=== PATIENT | male | born 2000 | race Caucasian/White ===

== ENCOUNTER 2020-05-30 00:33 | Observation (INO) | payer OTHER, SELFPAY ==
[2020-05-30] VITALS (13 sets, daily range): BP systolic 107–143; BP diastolic 39–68; PULSE 59–101; RESP 14–22; TEMP 36.4–37.7; O2SAT 95–99
--- NOTE | 2020-05-30 00:35 | W.ED.GENAD ---
Discharge Plan Disposition Patient Disposition: [facility] INPATIENT Condition: Good Discharge Details Chief Complaint: Orthopedic Clinical Impression: Closed fracture dislocation of left ankle Primary Care Provider: Stefani,Local ED Provider: Patrick Sheets [place] Meds and New Rx's Prescriptions: No Action mupirocin 22 GM ointment 1 adolfo Topical TID Qty: 22 RF: 1 cetirizine 10 mg tablet 10 mg PO DAILY PRN (Reason: allergy symptoms) Qty: 30 RF: 2 triamcinolone acetonide 0.1 % cream 1 applic TP BID Qty: 80 RF: 1 citalopram 10 mg tablet 10 mg PO DAILY Qty: 90 RF: 3 Medical Decision Making Patient reports having about 10 beers tonight. He is awake and alert and in obvious discomfort. IV established and aliquots of fentanyl 50 mcg were given. X-ray was obtained to show fracture of the distal fibula with dislocation of the ankle at the tibia. After 250 mcg of fentanyl, patient was comfortable enough. Fracture dislocation was reduced with traction countertraction without difficulty. Patient tolerated well. Leg is put in a posterior splint. Postreduction films look good. Patient remains neurovascularly intact. Foot pinked up immediately and pulse became strong. Case discussed with orthopedics, Dr. Benz. Patient to be admitted to his service with plan for or in the morning. Patient and mother updated on plan. Patient resting comfortably with foot elevated and ice in place. HPI General Mode of arrival: wheelchair. Date/Time Provider Initiated Documentation: 05/30/20 00:35. Limitations to Documentation: no limitations. Information obtained by: patient and RN notes reviewed. HPI Narrative: Patient presents to ED with left ankle injury. Patient was out with friends. They have been drinking. They were playing football when he jumped over a fence to catch the ball. He landed awkwardly and immediately had pain and heard a snap. Denies any other injury. Did not have loss of consciousness. Has no chest pain, back pain, neck pain, shortness of breath. He has obvious deformity of the left ankle. Related Data Home Medications Medication Instructions Recorded Confirmed mupirocin 1 adolfo TOPICAL TID #22 gm 05/17/18 12/06/18 cetirizine 10 mg tablet 10 mg PO DAILY PRN #30 tab 07/23/18 12/06/18 triamcinolone acetonide 0.1 % 1 applic TP BID #80 gm 07/23/18 12/06/18 topical cream citalopram 10 mg tablet 10 mg PO DAILY #90 tab 07/09/19 Previous Rx's Medication Instructions Recorded mupirocin 1 adolfo TOPICAL TID #22 gm 05/17/18 cetirizine 10 mg tablet 10 mg PO DAILY PRN #30 tab 07/23/18 triamcinolone acetonide 0.1 % 1 applic TP BID #80 gm 07/23/18 topical cream citalopram 10 mg tablet 10 mg PO DAILY #90 tab 07/09/19 Allergies Allergy/AdvReac Type Severity Reaction Status Date / Time cat dander Allergy Unverified 12/06/18 11:47 dog dander Allergy Unverified 12/06/18 11:47 Review of Systems Narrative: As documented in HPI otherwise negative as below. 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 Const: WDWN male in NAD. HEENT: NC/AT. Normal facial exam. Neck: Supple. Trachea midline. no midline tenderness. Lungs: Normal respiratory effort. No chest wall tenderness. Cor: Good distalal pulses. Neuro: A+O x 3. Normal speech, mentation, gait. Cranial nerves II - XII grossly intact. No gross motor or sensory deficit. Ext: Left lower extremity with obvious fracture dislocation of the left ankle with foot turning out laterally. This is closed. Foot is dusky but DP pulse is palpable. Sensation and strength distally. Skin: Warm and dry without wounds. Procedures Orthopedic Joint Reduction Joint #1: Time Out Performed: Yes Side: left Joint Reduction Location: ankle Analgesia: other (fentanyl only) Technique used: traction/counter-traction Post-reduction neuro exam: intact Post-reduction vascular: intact Post Reduction X-Ray Obtained: Yes Post Reduction X-Ray Results: reduced Splint Applied: Yes Patient Tolerated Procedure: well and no complications Orthopedic Splinting/Casting Injury #1: Side: left Lower Extremity Injury Location: ankle Lower Extremity Immobilizer: posterior splint
--- NOTE | 2020-05-30 00:54 | DI.RAD_ITS ---
EXAM: XR ANKLE LT 2V CLINICAL HISTORY: trauma TECHNIQUE: 2D digital imaging was performed. COMPARISON: No exams were available for comparison FINDINGS: BONES: There is a comminuted fracture through the distal fibular diaphysis. The distal fracture is a ngulated laterally. There is a fracture fragment seen in the ankle joint. No bony destructive lesio n is seen. JOINTS:There is a complete dislocation of the ankle with the talus displaced laterally with overlap o f the tibia and talus noted. SOFT TISSUE: Soft tissue swelling about the ankle is noted. IMPRESSION: Fracture dislocation of the ankle joint. There is a comminuted and angulated distal fibular fracture and lateral dislocation of the ankle joint. DATA REPOSITORY: RADIATION DOSE DELIVERED:
[2020-05-30] MEDS: fentaNYL 100 MCG/2 ML VIAL 50 MCG IVP ×6 (00:55→01:10)
[2020-05-30] MEDS: Lactated Ringers 1,000 ML 1000 ML IV (01:03)
--- NOTE | 2020-05-30 01:22 | DI.RAD_ITS ---
EXAM: XR ANKLE LT COMPLETE CLINICAL HISTORY: post reduction TECHNIQUE: 2D digital imaging was performed. COMPARISON: No exams were available for comparison FINDINGS: BONES: Since the prior examination there has been significant improvement in the alignment of the dis chance fibular fracture. There is a persistent 5 mm gap between the dominant fracture fragments. No beatriz ny destructive lesion is seen. There is a linear density seen on the lateral view inferior to the faby caneus which may represent a displaced fracture fragment or external artifact. It may be related to the lateral casting material. JOINTS:The ankle alignment has been relocated. There is persistent moderate widening of the medial a nkle mortise. SOFT TISSUE: Normal. IMPRESSION: 1. Significant improvement in the alignment of the left ankle fracture dislocation as described above . 2. Linear density inferior to the calcaneus appreciated on the lateral view. Please see the above di scussion for details. DATA REPOSITORY: RADIATION DOSE DELIVERED:
--- NOTE | 2020-05-30 01:24 | DI.VRAD_ITS ---
PROCEDURE INFORMATION: Exam: XR Left Ankle Exam date and time: 05/30/2020 12:55 AM Age: 19 years old Clinical indication: Injury or trauma; Initial encounter; Dislocation; Injury details: PT was jumping over a fence, severe left ankle deformity. Foot appears externally rotated approx. 90* while the lower leg remains in the ap position TECHNIQUE: Imaging protocol: XR Left ankle. Views: 1 or 2 views. COMPARISON: No relevant prior studies available. FINDINGS: Bones/joints: There is a fracture-dislocation involving the ankle. There is a spiral fracture of the distal fibular diaphysis. The fracture fragments are splayed at the ankle joint and there is a 1.2 cm fracture fragment in the ankle joint. There is complete dislocation of the tibia with mild overlap with the talus. Soft tissues: No large soft tissue hematoma seen. IMPRESSION: Significant fracture-dislocation of the ankle joint with dislocation of the tibia and spiral fracture of the distal fibula. Dictated and Authenticated by: Evonne Doty MD. Ordering:EARLENE Nguyen MD
--- NOTE | 2020-05-30 01:24 | NUR.NOTE ---
Arrives with left ankle deformity s/p jumping over fence. +PP, foot dusky, cool. Med per JAN, ankle reduced by MD Sheets, color improved, foot warmed. Splint applied by MD Sheets, post reduction films done.
--- NOTE | 2020-05-30 01:34 | NUR.NOTE ---
[facility] [phone] [place] [phone]
--- NOTE | 2020-05-30 01:36 | NUR.NOTE ---
Pt attempted to call mother, no answer. Pt friends left with his wallet and phone.
[2020-05-30] MEDS: Ketorolac 30 MG/ML VIAL IVP (01:42)
--- NOTE | 2020-05-30 01:57 | NUR.NOTE ---
Pt mother at bedside.aware of plan.
--- NOTE | 2020-05-30 02:11 | DI.VRAD_ITS ---
PROCEDURE INFORMATION: Exam: XR Left Ankle Exam date and time: 05/30/2020 1:22 AM Age: 19 years old Clinical indication: Abnormal findings; Abnormal imaging study; Patient HX: Post reduction, left ankle fracture/dislocation TECHNIQUE: Imaging protocol: XR Left ankle. Views: 3 or more views. COMPARISON: CR XR ANKLE LT 2V 05/30/2020 12:49 AM FINDINGS: Bones/joints: The patient is status post reduction of left ankle fracture-dislocation. There is significant improved alignment of the spiral fracture of the distal fibula with approximately 5 mm residual gap between the dominant fracture fragments. There is a linear density in the region of the inferior calcaneal soft tissues, which may represent a fracture fragment or external object. The tibia has been relocated within the ankle joint with mild residual widening at the medial ankle mortise. Soft tissues: No large soft tissue hematoma. IMPRESSION: 1. Significant interval improvement in alignment of left ankle fracture-dislocation with details as described. 2. Linear density inferior to the calcaneus may represent a fracture fragment versus an external object. Correlate with physical examination findings. Dictated and Authenticated by: Evonne Doty MD. Ordering:EARLENE Nguyen MD
[2020-05-30] MEDS: Lactated Ringers 1,000 ML 80 ML IV ×2 (03:15→10:01)
--- NOTE | 2020-05-30 07:07 | W.PM.HP.N ---
Date of service: 05/30/20 Time of Service: 06:47 Assessment and Plan Assessment and plan (1) Closed fracture dislocation of left ankle: Status: Acute Assessment and plan: Tyson is a 19-year-old who had a slip and a fall and a left ankle fracture dislocation. This is a primary Raya C fibula fracture with clear syndesmotic injury. I had a long discussion with Tyson about treatment options. I would recommend urgent surgical stabilization given the persistent lateral subluxation of the talus. I am concerned about his skin. He does have some wrinkles but no other swellings continue to develop. We are under 24 hours and therefore should be safe to proceed. Either way, this does need to be made better. My plan will be for a lateral approach to restore fibular anatomy, reduce the talus, and then secure the syndesmosis with either a tight rope or screw. I would only open the medial side of his still unstable or was irreducible. I discussed treatment risk, to include bleeding, infection, pain, stiffness, malunion, nonunion, hardware prominence, hardware failure, damage to nerves and vessels (especially the superficial peroneal nerve), arthritis, need for repeat procedures including screw removal, blood clot. Despite these risks, he elects to proceed. Qualifiers: Encounter type: initial encounter Qualified Code(s): S82.892A - Other fracture of left lower leg, initial encounter for closed fracture History of Present Illness History of Present Illness Chief Complaint: Left Ankle Fracture Dislocation Consults Consult date: 05/30/20 Requesting physician: Patrick Sheets Narrative: Tyson is a 19-year-old who presented last night to the emergency department after a fall. At the time, he was having some drinks with some friends and was playing catch with a football. He hurt all day fence and slipped on the wet grass underneath suffering an external rotation event. Immediate deformity and pain. In the emergency department he was diagnosed with a left ankle fracture dislocation. He underwent a closed reduction by Dr. Sheets. This significantly improved his pain. He still has some pain about the left ankle but has been controlled overnight. He denies any previous ankle issues, no trauma nor surgery. He denies numbness or tingling. He denies pain in the hip or knee of this left leg. He has no medical issues. He has not traveled out of the region and has had no contact with people who have traveled on the region or have had sick contacts. He denies fevers, chills, cough, shortness of breath. Review of Systems All systems reviewed & are unremarkable except as noted in HPI and below PFSH Medical History Acne Depression (Inactive 11/29/17) Pectus carinatum (Inactive 06/07/13) Psoriasis Surgical History Circumcision teeth 10/02/18 Family History Mother Asthma Father Hyperlipidemia Other Mental disorder Social History Smoking/Tobacco Use Status: Never Alcohol Intake: current Alcohol Intake frequency: a few times a month Alcohol type: beer Substance use type: does not use Housing: other Details: dorm current occupation: [employer] Sexually active: No Do you think of yourself as: straight/heterosexual Do you feel safe at home: Yes Do you feel safe in your relationship?: Yes Additional Social history: 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, 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 Meds Home Medications and Allergies Home Medications Medication Instructions Recorded Confirmed Type cetirizine 10 mg tablet 10 mg PO DAILY PRN #30 tab 07/23/18 05/30/20 Rx Allergies Allergy/AdvReac Type Severity Reaction Status Date / Time cat dander Allergy Unverified 12/06/18 11:47 dog dander Allergy Unverified 12/06/18 11:47 Exam Const General: cooperative, healthy appearing, comfortable and no acute distress Nutritional Appearance: average body habitus Orientation: alert, awake and oriented x3 HENMT Head: normal to inspection, normocephalic and atraumatic Ears: hearing grossly normal bilaterally Eyes General: appearance normal, both eyes and all related structures Neck Neck: normal visual inspection and full ROM Resp Effort & Inspection: normal respiratory effort and able to speak in complete sentences Cardio Rate: regular rate Extrem Other: The left leg is in a splint. Some visible material was removed for better inspection. There is notable swelling yet the skin has a slight wrinkle to it. No break in the skin. Overall alignment appears grossly normal. He has intact EHL and FHL function. Sensation intact light touch over the superficial and deep peroneal nerve as well as the tibial nerve. Palpable DP pulse. No pain over the proximal fibula. No pain to palpation of the left knee. No pain with gentle internal or external rotation of the hip. Psych Mood: congruent mood Affect: normal affect Attitude: cooperative Results Imaging Imaging Studies: X-ray of the left ankle showed a complete ankle fracture dislocation with lateral displacement of the talus and comminuted fracture of the left fibula. No apparent medial fracture. Postreduction x-rays of the left ankle showed an improved reduction with some persistent lateral displacement. Long oblique fracture of the fibula. There is persistent medial clear space widening and slight talar tilt. No apparent medial tibia fracture. Last Vital Signs Temp 37.4 C 05/30/20 03:15 Pulse 80 05/30/20 03:15 Resp 16 05/30/20 03:15 BP 129/66 05/30/20 03:15 Pulse Ox 98 05/30/20 03:15 COVID-19 Screening Have you,or household,traveled outside [place] in last 14 days?: No Had IN PERSON contact w/suspected or confirmed C-19 person: No
--- NOTE | 2020-05-30 07:15 | DI.RAD_ITS ---
EXAM: XR ANKLE LT 2V CLINICAL HISTORY: fracture TECHNIQUE: 2D and realtime digital imaging was performed. CONTRAST MATERIAL: Refer to procedure report. COMPARISON: CR,XR XR ANKLE LT COMPLETE from 05/30/2020 FINDINGS: Fluoroscopy was provided for Dr. Benz during the performance of a reduction and internal fixatio n of the distal fibular fracture and suture button fixation of the syndesmosis. There has been impro alanis anatomic alignment of the fibula and ankle mortise. Please refer to the procedure report for com plete details. Fluoro time: 64.5 seconds IMPRESSION:
[2020-05-30] MEDS: ceFAZolin 2 GM/50 ML BAG IVPB (08:02)
--- NOTE | 2020-05-30 09:46 | DI.VRAD_ITS ---
PROCEDURE INFORMATION: Exam: XR Left Ankle Exam date and time: 05/30/2020 9:37 AM Age: 19 years old Clinical indication: Device placement; Other: Fibula plate placement TECHNIQUE: Imaging protocol: XR Left ankle. Views: 3 or more views. COMPARISON: CR XR ANKLE LT COMPLETE 05/30/2020 1:16 AM FINDINGS: 2 static fluoroscopic images demonstrate a new metallic plate along the lateral aspect of the distal fibula, including the lateral malleolus, secured with multiple screws, with 1 additional free screw. A transsyndesmotic band is also present, secured with a clip over the medial aspect of the tibia. Previously noted fibular fracture is in improved anatomic alignment. Positioning of the mortise is also improved. IMPRESSION: Intraoperative fluoroscopy for ORIF. Dictated and Authenticated by: Mook Roblero MD. Ordering:TODD Taylor MD
--- NOTE | 2020-05-30 09:55 | ROE_ITS ---
Date of service: 05/30/20 Time of Service: 09:55 Operative Note Operative Note DATE OF PROCEDURE: 05/30/20 PRE-OP DIAGNOSIS: Left Ankle Fracture Dislocation POST-OP DIAGNOSIS: same PROCEDURE: Open Reduction and Internal Fixation of Left Ankle Fracture- Lateral Malleolus and Syndesmosis SURGEON: Brandon Benz MAIL HANDLER EQUIPMENT OPERATOR: Alexa Villasenor ANESTHESIA: spinal ESTIMATED BLOOD LOSS: 50 PATHOLOGY: none sent TOURNIQUET TIME: 0 COMPLICATIONS: None Patient was transported to: PACU Patient's condition: stable Implants: Synthes 1/3 Tubular LCP plate, Arthrex Syndesmosis Tightrope Indications: Tyson is a 19 year old male who presented to the Emergency Department after a fall. X-rays confirmed the diagnosis of a left ankle fracture-dislocation. This was reduced but with some residual lateral talar displacement. I reviewed the possible treatment options and given the fracture, I recommended operative fixation. I discussed the technical details of the surgery. I reviewed the risks such as bleeding, infection, pain, stiffness, malunion, nonunion, hardware prominence, hardware failure, damage to nerves and vessels, blood clot. Despite these risks, he agreed to proceed. Findings: There was a comminuted, oblique fracture of the distal fibula repaired with a lag screw and a neutralization plate. Syndesmosis was secured with a tightrope device. Procedure Description: Tyson was greeted in the preoperative area. Consent was previously reviewed and signed. Once in the operating room, spinal anesthesia was administered. The patient was transferred to the fracture table in the supine position. He was positioned in the supine position with the operative side placed onto a bone foam ramp. All bony prominences were well padded. Arms were placed out to the side, padded, and secured. Prophylactic antibiotics, Cefazolin 2 grams, was given for prophylactic antibiotics. A timeout was performed for safe surgery. The left leg was prepped with Chloraprep. The leg was draped with a stockinette and extremity drape. Using fluoroscopy for guidance of positioning of the incision, a lateral approach to the fibula was planned. A longitudinal incision was made over the posterior aspect of the fibula starting from the tip of the distal fibula to an area proximal to the main fracture line. This was taken down sharply through the skin and some the subcutaneous tissue. A Metzenbaum scissor was used to dissect on top of the fascia to make sure there was no identification of the superficial peroneal nerve. It was then identified on top of the fascia and therefore the fascia was incised overlying the posterior aspect of the fibula. This was taken down to bone for the length of the surgery site. The fracture was identified. Using both electrocautery as well as a cates elevator, I elevated some the periosteum from around the fracture and in the area of where the plate would be placed. The fracture site was open and debrided of any early fracture hematoma. There is no to be some slight comminution over the anterior, distal aspect of the fibula at the level of the syndesmotic attachment of the anterior inferior tibiofibular ligament. This was a really small piece which was difficult to mobilize separately so it was left for later. The main fracture line was a long oblique fracture. There was a small extension proximally which was very thin. This was deemed not to be integral to the main repair and therefore focus was made on an anatomic reduction of the primary oblique fracture line. Manipulated the fracture and then using clamps I was able to anatomically reapproximate the distal fibula. This main oblique fracture line was noted to be anatomically reduced. It was held with 2 clamps. I then placed a lag screw from anterior to posterior. This 3.5 millimeter screw was placed using lag technique, over drilling the near cortex. This had excellent purchase and compressed the fracture site. After placement of this lag screw remove the other clamps there is no to be excellent stability at the fracture site. Therefore I proceeded with a neutralization plate. An 8 hole one third tubular plate was chosen based on his length. It was held onto the fibula noted to be of appropriate length to get 3 screws into the proximal piece and 3 screws in the distal piece and avoid the majority of the oblique fracture line and allow hole for syndesmotic fixation. This was then contoured on the back table to shape around the distal fibula. I then placed it onto the fibula staying directly lateral and not causing irritation to the asia mana muscle and tendon. It was held in a poor position, confirmed to be in a good spot on x-ray as well as direct visualization. It was then held there with a clamp and K wire. A single nonlocking cortical screw was placed distally which brought down the end of the plate to bone. This also helped contour the plate to the shape of the fibula. Similarly, a 3.5 mm nonlocking cortical screw was placed proximally which did the same to bring the plate down to bone. This was once again checked and made sure to be in appropriate position. I then placed 2 additional nonlocking screws proximally. These had excellent purchase in the bone. Distally, I placed 2 locking screws to the plate. Once these were positioned and noted to be unicortical not violating the tibiofibular or tibiotalar joint, I then remove the nonlocking screw and replaced it with a locking screw to minimize screw head prominence as well as create a fixed angle construct into the poor bone of the distal fibula. Once was completed the fracture line was stable. X-ray was used to confirm that the reduction appeared anatomic. The syndesmosis was still unstable as expected. Therefore, I placed a syndesmotic tight rope fixation. Using the Arthrex system, a K wire was placed from the plate across the tibia angle at about 30 degrees from posterior to anterior and staying parallel to the joint. With this placed this was drilled. K wire drill removed. The syndesmotic tight rope and button were then inserted through the tibia and once on the other side released in position against the tibial cortex. This was manipulated few times to make sure was sitting squarely against bone. It was also tested to make sure that it was secure. The button was then slid down onto the plate and using the handles, the tight rope was tightened. Excess suture was then cut. Final x-rays were obtained which showed anatomic reduction of the fibula. External rotation stress test showed no significant talar tilt or medial space widening so therefore no medial approach and deltoid repair was performed. There still was some posterior displacement of the superior wafer of the fibula. I placed a single 2-0 FiberWire stitch and a cerclage fashion around this to help hold it in place. However, the proximal aspect was attached to some muscle fascia and was difficult and trying to keep reduced onto the fibula. Therefore, I did not further dissect and expose this area and left as is knowing that it would be held in position in a rough approximation given its attachments to the surrounding muscle. The wound was thoroughly irrigated. The deep tissues and skin and subcutaneous tissue were injected with 0.25% ropivacaine with epinephrine. No tourniquet was used during the case. I was able to get a nice fascial closure using a 0 Vicryl completely closing off the plate with soft tissue. The deep tissues were then reapproximated with a 2-0 Vicryl. The skin was closed with both interrupted and horizontal mattress nylon sutures. He was swollen but we were able to close the wound with minimal tension. The wound was covered with Xeroform, 4 x 4's, ABD and web roll. He was placed into a short leg splint. At the end of the case, all counts were correct. Tyson tolerated the procedure well without known complication and was taken to the PACU for recovery. Physical therapy will start post-operatively, nonweightbearing with a splint. Anticoagulation will start within 12-24 hours, aspirin 81 mg twice daily. Post-operative antibiotics for prophylaxis will be administered.
--- NOTE | 2020-05-30 09:57 | DSE_ITS ---
Date of service: 05/30/20 DS: Diagnosis Discharge Diagnosis (1) Closed fracture dislocation of left ankle: Status: Acute Discharge Plan Disposition Patient Disposition: HOME Condition: Good Discharge Details Chief Complaint: Orthopedic Clinical Impression: Closed fracture dislocation of left ankle Reason For Visit: LEFT ANKLE FRACTURE DISLOCATION Admit Date/Time: 05/30/20 02:12 Admit Provider: Brandon Benz Attending Provider: Brandon Benz [facility] Pat[facility] Hospital Course: Patient was admitted to the medical/surgical floor from the ED and then went to surgery that morning. He returned to the floor following the procedure. The surgery was tolerated well without any notable medical, surgical, or anesthetic complications. Mobilization began postoperatively. He was voiding spontaneously. Vitals were stable. Physical therapy worked with the patient and was cleared for discharge home. No acute medical issues. Pain was controlled on oral regimen. Home Meds and New Rx's Prescriptions: New aspirin 81 mg tablet,delayed release (DR/EC) 81 mg PO BID Qty: 60 RF: 0 acetaminophen 500 mg tablet 1,000 mg PO Q8H PRN (Reason: pain) Qty: 90 RF: 3 docusate sodium [Colace] 100 mg capsule 100 mg PO BID PRNQty: 10 RF: 0 ibuprofen 600 mg tablet 600 mg PO TID PRNQty: 90 RF: 3 oxycodone 5 mg tablet 5 mg PO Q6H PRN PRNQty: 12 RF: 0 Continued cetirizine 10 mg tablet 10 mg PO DAILY PRN (Reason: allergy symptoms) Qty: 30 RF: 2 Discharge Instructions Additional Instructions: Activity: You are NON WEIGHT BEARING. You should keep the leg elevated as much as possible. You may wiggle your toes and move your hip and knee. Dressings: You should keep your splint clean and dry. Do NOT get wet or dirty. If you have issues with your splint, please call the office at [phone] Benz on his cell, . You may apply ice to the splint but just make sure it is double bagged and doesn't get the splint wet. Medications: - You should take Tylenol and Ibuprofen around the clock for baseline pain. - You have been prescribed a stronger narcotic for breakthrough pain, Oxycodone. Take only as needed and as prescribed. Please call Dr. Benz if you are having serious pain. - You should take a Baby Aspirin (81mg) twice a day for blood clot prevention. Follow-up: 2 weeks Referrals: Brandon Benz MD [ [facility] STAFF PHYSICIAN] - 06/12/20 Activity:: Non weight bearing - keep elevated Equipment/Supplies:: Crutches Diet:: As Tolerated Discharge Orders Discharge Orders: Discharge Order (Routine); Ordered 05/30/20 Ordered By: Brandon Benz DS: Summary Status at Discharge Functional status at discharge: uses cane/walker Overall status at discharge: patient is progressing back to baseline Mental Status: mental status grossly normal Speech and Movement: speech and movement normal Mood: congruent mood Affect: normal affect Exam Psych Mental Status: mental status grossly normal Speech and Movement: speech and movement normal Mood: congruent mood Affect: normal affect DS: Data Vitals/I&O Vitals and I&O: Vital Signs Temperature 37.7 C H 05/30/20 07:35 Temperature Source Temporal Artery Scan 05/30/20 07:35 Pulse 83 05/30/20 07:35 Pulse Rhythm Regular 05/30/20 03:15 Respiratory Rate 18 05/30/20 07:35 Respiratory Effort Non-Labored 05/30/20 03:15 Respiratory Depth Normal 05/30/20 03:15 Respiratory Pattern Normal 05/30/20 03:15 Blood Pressure 143/65 H 05/30/20 07:35 Blood Pressure Position Sitting 05/30/20 00:34 Pulse Oximetry 99 05/30/20 07:35 Oxygen Delivery Method Room Air 05/30/20 07:35 Oxygen Flow Rate 0 05/30/20 07:35 Pain Level 0 05/30/20 07:35 Intake & Output 05/29/20 05/29/20 05/30/20 11:59 23:59 11:59 Intake Total 2049 Output Total 1200 / 1200 Balance 850 / 850 Weight 83.915 kg Intake: IV 2049 Output: Urine 1150 / 1150 Estimated Blood Loss 50 / 50 Other: Urine Color Pale Yellow Urine Appearance Clear Urine Odor Normal Voiding Methods Urinal Data Completed and Pending Labs on day of discharge: Labs from last 24 hours 05/30/20 02:15 COVID-19 PCR Pending Nasopharyn COVID-19 PCR Pending Ref Test Perform Site Pending [facility] Medical History Acne Depression (Inactive 11/29/17) Pectus carinatum (Inactive 06/07/13) Psoriasis Surgical History Circumcision teeth 10/02/18 Family History Mother Asthma Father Hyperlipidemia Other Mental disorder Social History Smoking/Tobacco Use Status: Never Alcohol Intake: current Alcohol Intake frequency: a few times a month Alcohol type: beer Substance use type: does not use Housing: other Details: dorm 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
[2020-05-30] MEDS: ceFAZolin 1 GM/50 ML BAG IVPB (11:19)
--- NOTE | 2020-05-30 12:03 | IN_ITS ---
Date of service: 05/30/20 Time of Service: 11:00 PT Notes Visit Reasons: LEFT ANKLE FRACTURE DISLOCATION Inpatient Physical Therapy Evaluation Date: 05/30/2020 Referring Doctor: Brandon Benz MD PT Orders: PT CONSULT: S/p Ortho surgery, nonweightbearing left LE status post ankle ORIF Precautions: Standard Patient Profile/Admitting Diagnosis: Patient s/p left ankle ORIF 05/30/2020, referred for PT for crutch training for preparation for discharge home. 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 He lives at home with his mother, who is a nurse, which is where he will be returning to. 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 He is going to college for exercise science. Current Functional Limitations: Nonweightbearing left LE, dependent on crutches for ambulation. Limited with self-care, ADLs, higher level systems development consultant, and due to nonweightbearing status of left lower extremity limited to lengthy ambulation. Equipment Owned/DME: None, provided with crutches today. Subjective: Denies pain. He does feel foggy in the head, as he is just coming out of surgery. He has never had to use crutches before. He is not anxious about crutch use. Objective: General Observation: IV left cubital fossa, reclined in bed, pale, cast left ankle Mental Status: A & O x3 Pain: 0/10 ROM: Right Upper Extremity: WNL Left Upper Extremity: WNL Right Lower Extremity: WNL Left Lower Extremity: WNL, aside from the left ankle with casted Strength: Right Upper Extremity: Grossly 5/5 Left Upper Extremity: Grossly 5/5 Right Lower Extremity: Grossly 5/5 Left Lower Extremity: Left hip flexion 4/5, quad and hamstring at least 3/5 Sensation: Intact throughout lower extremities, the exception of the region of his left ankle cast, including his left toes. Bed Mobility/Transfers: Contact-guard x1 for sit to stand at axillary crutches, and vice versa. Contact-guard with three-point gait, following gait training. Single-leg hop for stair extension and descension, with use of rail and 1 crutch. Gait: As above, and receives skilled gait training and three-point gait pattern with 2 axillary crutches. [id number] Balance: Static Sitting: Good Dynamic Sitting: Good Static Standing: Fair Dynamic Standing: Fair Special Tests: Mobility Limitations Standardized Measure [facility] AM-PAC 6 clicks Basic Mobility Inpatient Short Form: Raw Score: 20 Standardized Score: 35% Informed Consent/Education: Patient instructed in purpose of PT consult and plan of care. Assessment: Patient is a 19 year old male referred to physical therapy services with the diagnosis of status post left ankle ORIF 05/30/2020. Patient presents with clinical signs and symptoms consistent with referred diagnosis, contributing to function limitations of gait antalgia, self care and ADL limitations, and inability to perform a premorbid level of function, secondary to left lower extremity nonweightbearing status. AMPAC score of 35% disability. Patient will be reliant on his mother for caregiving, and she demonstrates understanding of use of axillary crutches, protocol, and safety measures. He is safe enough to return home with her, based on today's performance, with her support and contact guard. Patient is assessed as a Low [id number] Examination: See above functional limitations and impairment Presentation: Stable Decision Making: easy Goals: Goals X1 day 1. Supine-Sit supervision 2. Sit-Supine supervision 3. Sit-Stand supervision with 2 axillary crutches 4. Stand-Sit supervision with 2 axillary crutches 5. Bed-Chair supervision 6. Chair-Bed supervision 7. Three-point gait, 2 axillary crutches, with supervision 8. Stairs 2, 1 rail, 1 crutch 9. Independent with home exercise program 10. Balance steady with static activities, fair with supervision with dynamic activity All the above met Plan of Care/Treatment Plan: DISCHARGE RECOMMENDATIONS: Home with mother supervision and care, continue with Dr. Benz's orders TREATMENT CODE/TIME: 30 minutes, [id number], [id number]
--- NOTE | 2020-05-30 20:13 | PDOC.CMPRO ---
- If Service Date Differs Date of service: 05/30/20 Time of Service: 20:13 Care Management Progress Note S/O: CM met with Tyson and his mother shortly before his discharge. He was pleasant and agreeable to conversation. He shared that he fractured his ankle jumping over a fence. He denied pain or the need for services. He has been provided with crutches and instructions in their use by PT. P: Tyson will be discharged home with his mother. He will follow up with his surgeon and discharge plan of care.
--- NOTE | 2020-05-30 20:17 | PDOC.CMDIS ---
- If Service Date Differs Date of service: 05/30/20 Time of Service: 20:17 LACE Index Scoring Tool - Questions: Length of Stay (in days): 1 Acuity (Admit via E.D.?): Yes E.D. Visits: 1 - Answers: Total Score: 5 Risk of Readmission: Low Risk Care Management Discharge Reason for Hospitalization: fractured ankle Discharge Plan: Tyson will be discharged home with no services. He will follow up with his surgeon and plan of care. Tyson will transport via private vehicle with his mother. Patient/Family Education Needs: Discharge plan, limitations, Ask Me Three
== END 2020-05-30 13:04 | disposition home or self-care (01) ==
LOC: ER 02:39 → MS 02:58
PROVIDERS: Admitting Provider Student in an Organized Health Care Education/Training Program; Emergency Provider Emergency Medicine; PCP Family Medicine; Visit Provider Student in an Organized Health Care Education/Training Program
PROC: 0QSK04Z Reposition Left Fibula with Internal Fixation Device, Open Approach (ICD-10-PCS; CPT 27792; principal; 2020-05-30 07:20)
DX: S82.62XA Displaced fracture of lateral malleolus of left fibula, initial encounter for closed fracture (principal); S93.05XA Dislocation of left ankle joint, initial encounter; W18.30XA Fall on same level, unspecified, initial encounter; Y93.61 Activity, american tackle football; M25.372 Other instability, left ankle
CPT/HCPCS: 27792; 27829; C1713; 27840; 96361; 96374; 96375; 97116; 97161; 99223; 99285; NC; U0003; 73600; 73610; 99284; E0114; G0378; J0131; J0690; J1100; J1885; J2001; J2405; J3010

== ENCOUNTER 2020-06-12 08:09 | Outpatient (CLI) | payer OTHER, SELFPAY ==
--- NOTE | 2020-06-12 08:00 | DI.RAD_ITS ---
EXAM: XR ANKLE LT COMPLETE CLINICAL HISTORY: left ankle ORIF TECHNIQUE: 2D digital imaging was performed. COMPARISON: CR,XR XR ANKLE LT COMPLETE from 05/30/2020 RF,XR XR ANKLE LT 2V from 05/30/2020 FINDINGS: The distal fibular fixation plate is unchanged in position. There is no change in fracture alignment . There is no ankle mortise widening.
== END 2020-06-12 08:29 ==
PROVIDERS: PCP Family Medicine; Referring Provider Family Medicine; Visit Provider Physician Assistant Surgical
DX: S82.892A Other fracture of left lower leg, initial encounter for closed fracture (principal); Z96.9 Presence of functional implant, unspecified
CPT/HCPCS: 73610

== ENCOUNTER 2020-07-10 10:10 | Outpatient (CLI) | payer OTHER, SELFPAY ==
--- NOTE | 2020-07-10 08:15 | DI.RAD_ITS ---
EXAM: XR ANKLE LT COMPLETE CLINICAL HISTORY: F/U FRACTURE TECHNIQUE: COMPARISON: CR XR ANKLE LT COMPLETE from 06/12/2020 FINDINGS: Three views were obtained and show previously described fixation fracture of the distal fibula and yang ture fixation of the tibiofibular joint. Alignment appears unchanged in comparison with examination of June 12 IMPRESSION: RADIATION DOSE DELIVERED: Total DLP
== END 2020-07-10 10:30 ==
PROVIDERS: PCP Family Medicine; Referring Provider Family Medicine; Visit Provider Student in an Organized Health Care Education/Training Program
DX: S82.402A Unspecified fracture of shaft of left fibula, initial encounter for closed fracture (principal)
CPT/HCPCS: 73610

== ENCOUNTER 2020-09-04 11:59 | Outpatient (CLI) | payer OTHER, SELFPAY ==
--- NOTE | 2020-09-04 11:07 | DI.RAD_ITS ---
EXAM: XR ANKLE LT COMPLETE INDICATION: f/u fracture. COMPARISON: CR XR ANKLE LT COMPLETE from 07/10/2020 TECHNIQUE: 2D digital imaging was performed. FINDINGS: There has been no change in fracture or hardware alignment. There has been some increased healing in the distal fibular fracture when compared with the previous exam. DATA REPOSITORY: RADIATION DOSE DELIVERED:
== END 2020-09-04 12:19 ==
PROVIDERS: PCP Family Medicine; Referring Provider Family Medicine; Visit Provider Student in an Organized Health Care Education/Training Program
DX: S82.892A Other fracture of left lower leg, initial encounter for closed fracture (principal)
CPT/HCPCS: 73610

== ENCOUNTER 2020-11-16 11:34 | Outpatient (CLI) | payer OTHER, SELFPAY ==
--- NOTE | 2020-11-16 10:30 | DI.RAD_ITS ---
EXAM: XR ANKLE LT COMPLETE CLINICAL HISTORY: f/u fracture. TECHNIQUE: 2D digital imaging was performed. COMPARISON: CR XR ANKLE LT COMPLETE from 09/04/2020 FINDINGS: Again noted is hardware comprised of a lateral fixation plate across a healed distal fibular fracture site with an independent screw at the fracture site also again noted. There is also a button with a syndesmotic channel and plate flush with the cortex on the medial metaphysis side of the distal tibi a. Medial malleolus appears unremarkable as does the posterior malleolus. Ankle and subtalar joints appear unremarkable. No defects in the talar dome. IMPRESSION: Continued satisfactory appearance. DATA REPOSITORY: RADIATION DOSE DELIVERED:
== END 2020-11-16 11:54 ==
PROVIDERS: PCP Family Medicine; Referring Provider Family Medicine; Visit Provider Student in an Organized Health Care Education/Training Program
DX: S82.492A Other fracture of shaft of left fibula, initial encounter for closed fracture (principal)
CPT/HCPCS: 73610